=== PATIENT | female | born 1965 | race Caucasian/White ===

== ENCOUNTER 2022-08-26 09:10 | Emergency (ER) | payer MEDICAID ==
[~2022-08-26] VITALS: Ht 154.9 cm; Wt 107.7 kg
[2022-08-26 09:14] VITALS: BP 127/80
[2022-08-26] MEDS ORDERED: AMOX500C2 PO (10:01)
== END 2022-08-26 10:17 | disposition home or self-care (01) ==
LOC: ER 09:11
DX: H66.91 Otitis media, unspecified, right ear (principal); F17.200 Nicotine dependence, unspecified, uncomplicated
CPT/HCPCS: 99283